=== PATIENT | female | born 1965 | race Caucasian/White ===

== ENCOUNTER → 2020-06-04 | Outpatient (CLI) | payer OTHER ==
[~2020-06-04] MED LIST: IBUPROFEN600 MG PO
== END ==
LOC: EMI 05-20 16:00
DX: M51.16 Intervertebral disc disorders with radiculopathy, lumbar region (principal); M51.37 Other intervertebral disc degeneration, lumbosacral region; M47.26 Other spondylosis with radiculopathy, lumbar region; M47.817 Spondylosis without myelopathy or radiculopathy, lumbosacral region; M48.07 Spinal stenosis, lumbosacral region; M48.061 Spinal stenosis, lumbar region without neurogenic claudication
CPT/HCPCS: 72148

== ENCOUNTER → 2021-04-24 | Outpatient (CLI) | payer OTHER | LOC: KOH-I 08:00 | DX: M47.12 Other spondylosis with myelopathy, cervical region (principal); M48.062 Spinal stenosis, lumbar region with neurogenic claudication; M48.02 Spinal stenosis, cervical region; M50.223 Other cervical disc displacement at C6-C7 level; M51.36 Other intervertebral disc degeneration, lumbar region; M51.37 Other intervertebral disc degeneration, lumbosacral region; Z98.1 Arthrodesis status | CPT/HCPCS: 72141; 72148 ==